=== PATIENT | female | born 1955 | race Caucasian/White ===

== ENCOUNTER → 2018-11-30 | Outpatient (CLI) | payer OTHER ==
[2018-12-01 14:07] LABS: HPV 16 Negative (Negative); HPV 18 Negative (Negative); HPV OTHER HR TYPES Negative (Negative)
== END | disposition home or self-care (01) ==
LOC: LAB 12:34 → LAB SHORT 12:34
PROVIDERS: Obstetrics & Gynecology Gynecology
DX: Z12.4 Encounter for screening for malignant neoplasm of cervix (principal)
CPT/HCPCS: 87624; G0123

== ENCOUNTER → 2020-02-27 | Outpatient (CLI) | payer SELFPAY ==
[2020-02-27 16:03] LABS: Free Thyroxine 1.48 ng/dL (0.70-1.60); Thyroid Stimulating Hormone 0.298 uIU/mL (0.360-4.800)
== END | disposition home or self-care (01) ==
LOC: LAB SHORT 13:30 → LAB 13:30
PROVIDERS: Hospitalist
DX: E89.0 Postprocedural hypothyroidism (principal)
CPT/HCPCS: 84439; 84443

== ENCOUNTER → 2021-03-12 | Outpatient (CLI) | payer OTHER ==
[2021-03-13 15:11] LABS: HPV 16 Negative (Negative); HPV 18 Negative (Negative); HPV OTHER HR TYPES Negative (Negative)
== END | disposition home or self-care (01) ==
LOC: LAB SHORT 09:36 → LAB 09:36
PROVIDERS: Obstetrics & Gynecology
DX: Z01.419 Encounter for gynecological examination (general) (routine) without abnormal findings (principal)
CPT/HCPCS: 87624; G0123

== ENCOUNTER 2022-05-21 08:21 | Day surgery (SDC) | payer OTHER ==
[~2022-05-21] VITALS: Ht 162.6 cm; Wt 58.5 kg
[2022-05-21] MEDS ORDERED: EUTHYROX125 MCG PO (09:04)
[2022-05-21] MEDS ORDERED: BUDESONIDE EC3 M1 PO (09:06)
[2022-05-21] MEDS ORDERED: CLOBETASOL EMOL15 G1 (09:07)
--- NOTE | 2022-05-21 18:39 | NUR ---
SHIFT SUMMARY PT HAS DONE WELL POST OP. PICKING AT FOOD & DRINKING FLUIDS WELL. HAS BEEN UP & AMBULATED. C/O BLADDER FULLNESS FEELING BUT BLADDER SCAN NEGATIVE. DECLINES TORADOL DUE TO COLITIS.
--- NOTE | 2022-05-22 05:36 | NUR ---
SHIFT SUMMARY POD1 FOR VAG HYSTER, A&P REPAIR. MELINA MEZA'D THIS AM WITH ABOUT 700 CLEAR YELLOW URINE OUTPUT. LIGHT AMOUNT OF BLOOD DRAINING ON ANNETTE PAD, PATIENT REPORTS NO N/V AND TOLERATES PO INTAKE. MEDICATED X1 FOR PAIN THIS SHIFT. PATIENT ABLE TO WALK IN ROOM WITH SBA. IV IS SALINE LOCKED THIS AM. VSS, PATIENT REPORTS PRESSURE IN ABD, HEATING PAD IN PLACE TO ABD FOR COMFORT. CALL LIGHT IS IN REACH, WILL REPORT TO DAY RN.
[2022-05-22] MEDS ORDERED: Norco 10-325 T1 EACH PO (09:37)
--- NOTE | 2022-05-22 11:12 | NUR ---
DISCHARGE SUMMARY POD1 VAGINAL HYSTERECTOMY, A/OX4, VSS, TOLERATING PO, PAIN WELL MANAGED PER EMAR. DISCUSSSED DISCHARGE INSTRUCTION WITH THE PATIENT INCLUDING MEDICATIONS, HOME CARE, AND FOLLOW UP APPOITNMENTS. NO QUESTIONS AT THIS TIME, IV ACCESS REMOVED. PT WAITING FOR HER RIDE TO GO HOME.
--- NOTE | 2022-05-22 11:35 | NUR ---
DISCHARGE ADDENDUM PATIENT ARRIVED TO PICK HER UP, ASSISTED INTO WC AND TAKEN TO THE FRONT TO HER PRIVATE AUTO TO GO HOME.
== END 2022-05-22 11:30 | disposition home or self-care (01) ==
LOC: ORSCMMR 08:21 → ORD 09:45 → SURS 12:41 → ORSCMMR 05-22 11:30
PROVIDERS: Obstetrics & Gynecology
PROC: 0JQC0ZZ Repair Pelvic Region Subcutaneous Tissue and Fascia, Open Approach (ICD-10-PCS; principal; 2022-05-21 09:45)
PROC: 0UT97ZZ Resection of Uterus, Via Natural or Artificial Opening (ICD-10-PCS; principal; 2022-05-21 09:45)
DX: N81.4 Uterovaginal prolapse, unspecified (principal); D25.9 Leiomyoma of uterus, unspecified; N72 Inflammatory disease of cervix uteri; N80.03 Adenomyosis of the uterus; E03.9 Hypothyroidism, unspecified; Z79.899 Other long term (current) drug therapy
CPT/HCPCS: 88307; A9270; J0690; J1100; J1885; J2250; J2405; J2704; J2765; J2795; J3010; J7120

== ENCOUNTER → 2023-11-04 | Outpatient (CLI) | payer OTHER ==
[~2023-11-04] MED LIST: BUDESONIDE EC3 M1 PO; CLOBETASOL EMOL15 G1; EUTHYROX125 MCG PO; Norco 10-325 T1 EACH PO
[2023-11-04 14:44] LABS: BASOPHILS ABSOLUTE AUTO 0.04 K/mm3 (0.00-0.23); BASOPHILS PERCENT AUTO 1 % (0-2); EOSINOPHILS PERCENT AUTO 3 % (0-6); Hematocrit 38.9 % (33.0-51.0); Hemoglobin 12.8 g/dL (11.5-16.0); IMMATURE GRAN PERCENT AUTO 0 % (0-1); LYMPHOCYTES ABSOLUTE AUTO 1.04 K/mm3 (0.84-5.20); LYMPHOCYTES PERCENT AUTO 30 % (21-46); MONOCYTES ABSOLUTE AUTO 0.35 K/mm3 (0.16-1.47); MONOCYTES PERCENT AUTO 10 % (4-13); Mean Corpuscular HGB 32.8 pg (26.0-34.0); Mean Corpuscular HGB Conc 32.9 g/dL (31.5-36.5); Mean Corpuscular Volume 100 fL (80-100); Mean Platelet Volume 11.7 fL (9.1-12.4); NEUTROPHILS ABSOLUTE AUTO 1.89 K/mm3 (1.96-9.15); NEUTROPHILS PERCENT AUTO 55 % (41-73); Platelet Count 233 K/mm3 (150-400); RDW Coefficient Variation 13.9 % (11.7-14.2); RDW Standard Deviation 51.1 fL (35.1-46.3); White Blood Cell Count 3.42 K/mm3 (4.00-11.30)
[2023-11-04 14:49] LABS: Free Thyroxine 1.21 ng/dL (0.70-1.60); Very Low Density Lipoprot Chol 6 mg/dL (6-32)
[2023-11-04 14:50] LABS: Alanine Aminotransfer (ALT/SGP 19 U/L (12-78); Albumin/Globulin Ratio 1.5 (0.8-1.8); Alk Phos 64 U/L (50-136); Anion Gap 6 mmol/L (3-11); Aspartate Aminotrans (AST/SGOT 13 U/L (12-37); Bilirubin, Total 0.6 mg/dL (0.1-1.0); Blood Urea Nitrogen 14 mg/dL (8-24); CHOL/HDL RATIO 1.6; CO2, Blood 30 mmol/L (21-32); Calcium, Blood 9.3 mg/dL (8.5-10.1); Chloride, Blood 107 mmol/L (98-108); Cholesterol 218 mg/dL (50-200); Creatinine, Blood 0.78 mg/dL (0.40-1.00); Globulin, Blood 2.6 g/dL (2.2-4.0); Glomerular Filtration Rate 83 (60-); Glucose, Blood 86 mg/dL (70-99); HDL Cholesterol 137 mg/dL (>39); LDL/HDL RATIO 0.5; Low Density Lipoprotein Chol 75 mg/dL (0-110); Potassium, Blood 4.2 mmol/L (3.5-5.5); Sodium, Blood 139 mmol/L (136-145); Total Protein, Blood 6.6 g/dL (6.4-8.2); Triglycerides 31 mg/dL (30-160)
== END | disposition home or self-care (01) ==
LOC: LAB SHORT 13:54 → LAB 13:54
PROVIDERS: Hospitalist
DX: E78.00 Pure hypercholesterolemia, unspecified (principal); E89.0 Postprocedural hypothyroidism; K52.831 Collagenous colitis
CPT/HCPCS: 80053; 80061; 84439; 84443; 85025

== ENCOUNTER 2023-11-10 10:32 | Day surgery (SDC) | payer OTHER ==
[~2023-11-10] VITALS: Ht 162.6 cm; Wt 55.9 kg
[~2023-11-10 10:32] MED LIST changes: +Lactated Ringer's 1,000 ML IV ONE; +propofoL 50 ML IV ONE
[2023-11-10] MEDS ORDERED: CHOLESTYRAMI239.4 G1 (10:46)
[2023-11-10] MEDS ORDERED: RALO60 (10:46)
[2023-11-10] MEDS ORDERED: Lactated Ringer's 1,000 ML IV ONE (11:25)
[2023-11-10 12:28] VITALS: BP 103/62
== END 2023-11-10 12:30 | disposition home or self-care (01) ==
LOC: ORSCSDS 10:32
PROVIDERS: Specialist
PROC: 0DBE8ZX Excision of Large Intestine, Via Natural or Artificial Opening Endoscopic, Diagnostic (ICD-10-PCS; principal; 2023-11-10 11:45)
PROC: 0DB98ZX Excision of Duodenum, Via Natural or Artificial Opening Endoscopic, Diagnostic (ICD-10-PCS; principal; 2023-11-10 11:45)
PROC: 0DB68ZX Excision of Stomach, Via Natural or Artificial Opening Endoscopic, Diagnostic (ICD-10-PCS; principal; 2023-11-10 11:45)
DX: K90.0 Celiac disease (principal); R19.7 Diarrhea, unspecified; E07.9 Disorder of thyroid, unspecified; K64.8 Other hemorrhoids; Z79.899 Other long term (current) drug therapy
CPT/HCPCS: 88305; 88342; J2704; J7120

== ENCOUNTER → 2024-11-28 | Outpatient (CLI) | payer OTHER ==
[~2024-11-28] MED LIST changes: +CHOLESTYRAMI239.4 G1; -Lactated Ringer's 1,000 ML IV ONE; +RALO60; -propofoL 50 ML IV ONE
== END ==
LOC: LAB 18:00 → LAB SHORT 18:00
DX: M1A.9XX1 Chronic gout, unspecified, with tophus (tophi) (principal)
CPT/HCPCS: 84550; 85651

== ENCOUNTER → 2025-01-23 | Outpatient (CLI) | payer OTHER ==
[2025-01-23 17:40] LABS: Thyroid Stimulating Hormone 1.11 uIU/mL (0.360-4.800)
== END ==
LOC: LAB 14:01 → LAB SHORT 14:01
PROVIDERS: Hospitalist
DX: E89.0 Postprocedural hypothyroidism (principal)
CPT/HCPCS: 84439; 84443